=== PATIENT | female | born 1930 | race Caucasian/White ===

== ENCOUNTER 2016-12-05 21:34 | Emergency (ER) | payer MEDICARE, OTHER | END 2016-12-06 02:26 | disposition other institution (70) | LOC: ER 21:34 | DX: K52.9 Noninfective gastroenteritis and colitis, unspecified (principal); K85.90 Acute pancreatitis without necrosis or infection, unspecified; R11.2 Nausea with vomiting, unspecified; R19.7 Diarrhea, unspecified; R10.13 Epigastric pain; I10 Essential (primary) hypertension; Z85.850 Personal history of malignant neoplasm of thyroid; Z88.6 Allergy status to analgesic agent | CPT/HCPCS: 99284; 99285-25 ==

== ENCOUNTER 2016-12-05 21:34 | Inpatient (IN) | payer MEDICARE, OTHER ==
[~2016-12-05] VITALS: Ht 167.6 cm; Wt 64.5 kg
[2016-12-05 22:41] LABS: BASO % 0.4 % (0.1-1.2); EOS # 0.3 10_X3_uL (0.0-0.4); EOS % 3.1 % (0.7-5.8); GRAN # 7.1 10_X3_uL (1.6-6.1); GRAN % 75.9 % (34.0-71.1); HEMATOCRIT 36.7 % (34-45); HEMOGLOBIN 12.1 g/dL (11.2-15.7); LYMPH # 1.3 10_X3_uL (1.2-3.7); LYMPH % 14.2 % (19.3-51.7); MEAN CORPUSCULAR HEMOGLOBIN 28.5 pg (27.0-33.0); MEAN CORPUSCULAR VOLUME 86.4 fL (79-95); MEAN PLATELET VOLUME 10.2 fl (7.5-11.5); MONO # 0.6 10_X3_uL (0.2-0.9); MONO % 6.4 % (4.7-12.5); PLATELET COUNT 263 x10_3/uL (182-369); RED BLOOD COUNT 4.25 x10_6/uL (3.9-5.2); RED CELL DISTRIBUTION WIDTH 14.3 % (11.7-14.4); WHITE BLOOD COUNT 9.4 x10_3/uL (4.0-10.0)
[2016-12-05 22:57] LABS: ALBUMIN 4.1 gm/dL (3.4-5.0); ALKALINE PHOSPHATASE 51 U/L (50-136); ALT/SGPT 49 U/L (3.5-33.9); AMYLASE 119 U/L (15.62-74.58); AST/SGOT 104 U/L (7.04-26.96); BILIRUBIN,TOTAL 0.27 mg/dL (0.0-1.0); BLOOD UREA NITROGEN 16 mg/dL (7-18); CALCIUM 8.7 mg/dL (8.7-10.7); CARBON DIOXIDE 22 mmol/L (21-32); CREATININE 0.7 mg/dL (0.6-1.3); GLUCOSE,RANDOM 117 mg/dL (70-99); LIPASE 160 U/L (6.75-60.75); POTASSIUM 4.6 mmol/L (3.5-5.1); SODIUM 134 mmol/L (136-145); TOTAL PROTEIN 6.7 gm/dL (6.4-8.2)
[2016-12-06 07:23] LABS: HEMATOCRIT 34.2 % (34-45); HEMOGLOBIN 11.5 g/dL (11.2-15.7); MEAN CORPUSCULAR HGB CONC 33.6 g/dL (32.0-36.0); MEAN CORPUSCULAR VOLUME 86.1 fL (79-95); MEAN PLATELET VOLUME 10.5 fl (7.5-11.5); RED BLOOD COUNT 3.97 x10_6/uL (3.9-5.2); RED CELL DISTRIBUTION WIDTH 14.2 % (11.7-14.4)
[2016-12-06 07:38] LABS: AHDL CHOLESTEROL 60 mg/dL (>40); ALBUMIN 3.6 gm/dL (3.4-5.0); ALKALINE PHOSPHATASE 46 U/L (50-136); ALT/SGPT 36 U/L (3.5-33.9); AST/SGOT 47 U/L (7.04-26.96); BILIRUBIN,TOTAL 0.49 mg/dL (0.0-1.0); BLOOD UREA NITROGEN 12 mg/dL (7-18); CALCIUM 8.5 mg/dL (8.7-10.7); CARBON DIOXIDE 24 mmol/L (21-32); CHOLESTEROL 152 mg/dL (0-200); CREATININE 0.6 mg/dL (0.6-1.3); GLUCOSE,RANDOM 91 mg/dL (70-99); LDL CHOLESTEROL 86 mg/dL (0-99); POTASSIUM 3.8 mmol/L (3.5-5.1); SODIUM 136 mmol/L (136-145); TOTAL PROTEIN 6.1 gm/dL (6.4-8.2); TRIGLYCERIDES 79 mg/dL (30-200)
[2016-12-06 08:59] LABS: AMYLASE 79 U/L (15.62-74.58); LIPASE 30 U/L (6.75-60.75)
[2016-12-07 07:45] LABS: ALBUMIN 3.6 gm/dL (3.4-5.0); ALKALINE PHOSPHATASE 41 U/L (50-136); ALT/SGPT 24 U/L (3.5-33.9); AMYLASE 175 U/L (15.62-74.58); AST/SGOT 26 U/L (7.04-26.96); BLOOD UREA NITROGEN 8 mg/dL (7-18); CALCIUM 8.3 mg/dL (8.7-10.7); CARBON DIOXIDE 23 mmol/L (21-32); CREATININE 0.7 mg/dL (0.6-1.3); GLUCOSE,RANDOM 83 mg/dL (70-99); LIPASE 19 U/L (6.75-60.75); POTASSIUM 3.8 mmol/L (3.5-5.1); SODIUM 140 mmol/L (136-145); TOTAL PROTEIN 5.8 gm/dL (6.4-8.2)
== END 2016-12-07 12:00 | disposition home or self-care (01) | DRG 440 ==
LOC: ER 21:34 → MS 12-06 02:26
PROVIDERS: Emergency Medicine; ADMIT Family Medicine
DX: K85.90 Acute pancreatitis without necrosis or infection, unspecified (principal); K75.9 Inflammatory liver disease, unspecified; R10.13 Epigastric pain; R11.2 Nausea with vomiting, unspecified; Z85.850 Personal history of malignant neoplasm of thyroid; I48.91 Unspecified atrial fibrillation; Z87.11 Personal history of peptic ulcer disease; I10 Essential (primary) hypertension; E11.9 Type 2 diabetes mellitus without complications; Z80.52 Family history of malignant neoplasm of bladder; F40.240 Claustrophobia; E89.0 Postprocedural hypothyroidism; Z90.49 Acquired absence of other specified parts of digestive tract; Z88.6 Allergy status to analgesic agent; Z88.5 Allergy status to narcotic agent; Z91.041 Radiographic dye allergy status; Z79.899 Other long term (current) drug therapy; Z79.84 Long term (current) use of oral hypoglycemic drugs
CPT/HCPCS: 36415; 74150; 80053; 80061; 82150; 82962; 83036; 83690; 85025; 99070; 99284; 99285-25; J7040

== ENCOUNTER 2017-01-23 11:37 | Emergency (ER) | payer MEDICARE, OTHER ==
[2017-01-23 14:05] LABS: BASO # 0.1 10_X3_uL (0.0-0.1); BASO % 1.1 % (0.1-1.2); EOS # 0.6 10_X3_uL (0.0-0.4); GRAN # 4.2 10_X3_uL (1.6-6.1); GRAN % 49.6 % (34.0-71.1); HEMATOCRIT 36.2 % (34-45); HEMOGLOBIN 11.9 g/dL (11.2-15.7); LYMPH # 2.6 10_X3_uL (1.2-3.7); LYMPH % 31.4 % (19.3-51.7); MEAN CORPUSCULAR HEMOGLOBIN 28.7 pg (27.0-33.0); MEAN CORPUSCULAR HGB CONC 32.9 g/dL (32.0-36.0); MEAN CORPUSCULAR VOLUME 87.4 fL (79-95); MEAN PLATELET VOLUME 10.2 fl (7.5-11.5); MONO # 0.9 10_X3_uL (0.2-0.9); MONO % 10.9 % (4.7-12.5); PLATELET COUNT 344 x10_3/uL (182-369); RED BLOOD COUNT 4.14 x10_6/uL (3.9-5.2); RED CELL DISTRIBUTION WIDTH 14.8 % (11.7-14.4); WHITE BLOOD COUNT 8.4 x10_3/uL (4.0-10.0)
[2017-01-23 14:11] LABS: BLOOD UREA NITROGEN 9 mg/dL (7-18); CALCIUM 8.7 mg/dL (8.7-10.7); CARBON DIOXIDE 23 mmol/L (21-32); CREATININE 0.7 mg/dL (0.6-1.3); GLUCOSE,RANDOM 109 mg/dL (70-99); POTASSIUM 4.3 mmol/L (3.5-5.1); SODIUM 136 mmol/L (136-145)
== END 2017-01-23 14:50 | disposition home or self-care (01) ==
LOC: ER 11:37
PROVIDERS: Emergency Medicine
DX: R00.2 Palpitations (principal); Z91.14 Patient's other noncompliance with medication regimen; R42 Dizziness and giddiness; R06.02 Shortness of breath; I10 Essential (primary) hypertension; Z90.710 Acquired absence of both cervix and uterus; E89.0 Postprocedural hypothyroidism; Z88.6 Allergy status to analgesic agent; Z88.1 Allergy status to other antibiotic agents; Z88.8 Allergy status to other drugs, medicaments and biological substances; Z79.84 Long term (current) use of oral hypoglycemic drugs; Z79.899 Other long term (current) drug therapy
CPT/HCPCS: 36415; 80048; 85025; 93005; 99284; 99284-25